=== PATIENT | female | born 1935 | race Caucasian/White ===

== ENCOUNTER → 2017-08-26 | Outpatient (CLI) | payer OTHER, BC ==
[~2017-08-26] MED LIST: ALEVE220 M1 PO; APAP500 PO; CALCIUM OYSTER500 MG PO; EVISTA PO; KEFLEX500 MG PO; MULTIVITAMINS PO; VICODIN 5-5001 EACH
== END ==
LOC: MRI 12:54
DX: S32.000D Wedge compression fracture of unspecified lumbar vertebra, subsequent encounter for fracture with routine healing (principal); M47.896 Other spondylosis, lumbar region; M51.26 Other intervertebral disc displacement, lumbar region; M41.86 Other forms of scoliosis, lumbar region; X58.XXXD Exposure to other specified factors, subsequent encounter

== ENCOUNTER 2021-03-29 06:22 | Emergency (ER) | payer OTHER, BC ==
[~2021-03-29] VITALS: Ht 170.2 cm; Wt 54.4 kg
--- NOTE | ~2021-03-29 | EMS ---
[address] [address] EMS Patient Care Report Name: CASIE MCNEIL Room #: REG TIFFANY Zamora#: [id number] Admission: 03/29/21 Attend Phys: Discharge: Date of : 39 Report #: [id number] THIS REPORT FOR: //name// Report Transmitted: 03/29/2021 06:30 EMS Care Summary [facility] MED-ACT Incident [id number] @ 03/29/2021 05:44 Incident Location [address] [place] [address] [address] [place] [address] Patient CASIE MCNEIL Female, 85 Years 1935 Patient Address [address] [place] [address] Patient History Hypertension (HTN),Alzheimer's,Anxiety,Atrial Fibrillation,Hypothyroidism, Patient Allergies No known allergies, Patient Medications Lorazepam, Losartan, Acetaminophen, Amiodarone, Citalopram, Xarelto, Levothyroxine, Chief Complaint Bleeding in her mouth Disposition Transported No Lights/[place] Dispatch Reason Hemorrhage/Laceration Transported To [facility] Narrative We arrived to find the pt lying on her L side in her bed. The pt presents [address] [address] EMS Patient Care Report Name: CASIE MCNEIL Room #: REG TIFFANY Zamora#: [id number] Admission: 03/29/21 Attend Phys: Discharge: Date of : 39 Report #: [id number] alert/confused, which is her baseline. The staff stated that the pt had a fall yesterday afternoon in her room. At the time of the fall, there was some swelling to the pt R cheek, but no other obvious injuries and she was not sent out for evaluation. Pt was checked regularly and as recently as 0200 hrs she was fine. When staff came in to check on the pt at 0530 she was found with dried blood on the R side of her face and blood in her mouth. Staff then called 911. They also tried to contact family and they were unsuccessful. The pt had a small line of dried blood on the R side of her face. When she opened her mouth for us to examine, she had a large clot in the upper R side of her mouth. The clot was easily removed with 4x4s and there was no active bleeding noted. Though there was some residual blood in her mouth. There was no new trauma noted from what she had from the fall earlier. Staff was asked if the pt was on blood thinners and they advised no. Pt was anxious and care was focused on keeping her calm and talking with her. Pt paperwork was not read until arriving at the ED, when it was discovered she does take a blood thinner. Pt mouth was checked repeatedly and there was no new bleeding noted. Pt rested comfortably en route to the ED. Pt care transferred to [facility] staff in room 11. Initial Vitals @06:10P: 61,BP: 132/64,SpO2: 98, @06:10P: 60,SpO2: 96, @05:59P: 64,R: 16,BP: 154/73,Pain: 2/10,GCS: 14,Temp: 98F,SpO2: 94,Revised Trauma: 12, Assessments @06:00MENTAL:Confused,Person Oriented,Place Oriented,SKIN:HEENT:Head/Face: OTH,LUNG SOUNDS:ABDOMEN:PELVIS//GI:EXTREMITIES:PULSE:NEURO: Impression Hemorrhage Procedures @06:00Surgical Mask on PatientResponse: Unchanged Timeline 05:42,Call Received 05:42,Psap Call 05:44,Dispatched 05:46,En Route 05:51,On Scene 05:54,At Patient 05:59,BP: 154/73 M,PULSE: 64,RR: 16 R,SPO2: 94 Ox,ETCO2: ,BG: ,PAIN: 2,GCS: 14, 06:00,Surgical Mask on Patient,Response: Unchanged 06:06,Depart Scene [facility] [address] [place] [address] EMS Patient Care Report Name: CASIE MCNEIL Room #: REG TIFFANY Zamora#: [id number] Admission: 03/29/21 Attend Phys: Discharge: Date of : 39 Report #: [id number] 06:10,BP: / M,PULSE: 60,RR: R,SPO2: 96 Ox,ETCO2: ,BG: ,PAIN: ,GCS: , 06:10,BP: 132/64 M,PULSE: 61,RR: R,SPO2: 98 Ox,ETCO2: ,BG: ,PAIN: ,GCS: , 06:13,At Destination 06:30,Call Closed Disclaimer v1.1 Copyright 2020 [employer] This EMS Care Summary contains data elements from the applicable legal record (which may be displayed differently). It is designed to provide pertinent information for the following purposes: continuity of care, clinical quality, and state data reporting. The complete legal record is available to ED staff and administrators of the receiving hospital in [employer]'s Patient Tracker. All data is provided "as is."
[2021-03-29 07:23] LABS: ABSOLUTE NEUTROPHILS 6.5 thou/uL (1.4-8.2); BASOPHILS 0.6 % (0.0-2.0); EOSINOPHILS 1.3 % (0.0-3.0); HEMATOCRIT 33.5 % (37.0-47.0); HEMOGLOBIN 11.2 gm/dL (12.0-15.0); LYMPHOCYTES 11.5 % (24.0-44.0); MCH 32.2 pg (26.0-34.0); MCHC 33.5 g/dL (28.0-37.0); MCV 96.1 fL (80.0-100.0); MONOCYTES 8.1 % (1.0-8.0); PLATELET COUNT 272 thou/uL (150-400); POLYS 78.5 % (36.0-66.0); RBC 3.48 mil/uL (4.20-5.00); RDW 15.2 % (10.5-14.5); WBC 8.3 thou/uL (4.0-11.0)
[2021-03-29 07:36] LABS: APTT 34.1 Seconds (24.5-32.8); INR 1.14; PROTIME 12.4 Seconds (10.5-12.1)
[2021-03-29 07:46] LABS: ANION GAP 9 mmol/L (7-16); BUN 11 mg/dL (7-18); CALCIUM 8.2 mg/dL (8.5-10.1); CHLORIDE 107 mmol/L (98-107); CO2 29 mmol/L (21-32); CREATININE 0.8 mg/dL (0.6-1.0); GLUCOSE 87 mg/dL (74-106); POTASSIUM 3.8 mmol/L (3.5-5.1); SODIUM 145 mmol/L (136-145)
[2021-03-29 07:56] LABS: ALBUMIN 3.2 g/dL (3.4-5.0); SGOT 16 U/L (15-37); SGPT 16 U/L (14-59); TOTAL BILIRUBIN 0.7 mg/dL (0.2-1.0); TOTAL PROTEIN 6.2 g/dL (6.4-8.2); TROPONIN-I <0.06 ng/mL (<0.06)
[2021-03-29 09:06] LABS: URINE BILIRUBIN NEGATIVE (Negative); URINE BLOOD 1+ (Negative); URINE CLARITY SL CLOUDY; URINE COLOR YELLOW; URINE GLUCOSE-RANDOM* NEGATIVE (Negative); URINE KETONES NEGATIVE (Negative); URINE PROTEIN (DIPSTICK) 1+ (Negative); URINE SPECIFIC GRAVITY 1.015 (1.005-1.035)
[2021-03-29 09:08] LABS: URINE LEUKOCYTES-REFLEX 3+ (Negative); URINE NITRITE-REFLEX POSITIVE (Negative)
[2021-03-29 09:20] LABS: CASTS None Seen /LPF (None Seen); SQUAMOUS None Seen /LPF (0-3); URINE RBC 3-10 Few /HPF (NONE SEEN); URINE WBC-REFLEX >25 Many /HPF (0-5)
[2021-03-29] MEDS ORDERED: CLEOCIN HCL300 MG PO (09:20)
[2021-03-29 09:21] LABS: AMORPHOUS URATES Moderate /LPF (None Seen)
[2021-03-29 11:56] VITALS: BP 115/65
--- NOTE | 2021-03-30 09:29 | EKG ---
[place] [address] [facility] [place] [address] ELECTROCARDIOGRAM REPORT Name: CASIE MCNEIL [facility] [id number] Admission: 03/29/21 Attend Phys: Discharge: 03/29/21 Date of : 39 Report #: [id number] [facility] ED Test Date: 2021-03-29 Test Time: 06:57:25 Pat Name: CASIE MCNEIL Department: Room: Gender: F Straw Baler: : 1935 Requested By: Gonzalo Eugene Order Number: [id number] MD: Manjinder Granda Measurements Intervals [place] Rate: 56 P: 78 [place]: 187 QRS: 71 QRSD: 94 T: 66 QT: 486 QTc: 470 Interpretive Statements Sinus rhythm Left ventricular hypertrophy Compared to ECG 08/07/2011 07:53:29 Left ventricular hypertrophy now present Electronically Signed On 03-30-2021 9:29:41 CDT by Manjinder Granda [email or web address] <ELECTRONICALLY SIGNED> By: Manjinder Granda MD, [facility] 03/30/21 [id number] [id number] Manjinder Granda MD, FACC /EPI
== END 2021-03-29 12:02 | disposition home or self-care (01) ==
LOC: ER 06:22
PROVIDERS: Emergency Medicine
DX: S02.401A Maxillary fracture, unspecified side, initial encounter for closed fracture (principal); S00.11XA Contusion of right eyelid and periocular area, initial encounter; S09.93XA Unspecified injury of face, initial encounter; S22.010A Wedge compression fracture of first thoracic vertebra, initial encounter for closed fracture; J45.909 Unspecified asthma, uncomplicated; Z98.890 Other specified postprocedural states; Z79.891 Long term (current) use of opiate analgesic; Z79.899 Other long term (current) drug therapy; W19.XXXA Unspecified fall, initial encounter; Y93.89 Activity, other specified; Y92.89 Other specified places as the place of occurrence of the external cause; Y99.8 Other external cause status